=== PATIENT | female | born 1985 | race African-American/Black ===

== ENCOUNTER 2020-12-01 13:14 | Emergency (ER) | payer OTHER ==
[~2020-12-01] VITALS: Ht 165.1 cm; Wt 85.5 kg
[2020-12-01] MEDS ORDERED: DEPO150I12 IM (13:42)
[2020-12-01 13:46] VITALS: BP 165/90
[2020-12-01] MEDS ORDERED: METOCLOPRAMIDE INJ 10MG/2ML VIAL (J2765 PER 1) IV ONE (14:00)
[2020-12-01] MEDS ORDERED: NS 1,000 ML IV ONE (14:00)
[2020-12-01] MEDS ORDERED: ACETAMINOPHEN 500 MG TAB PO ONE (14:00)
[2020-12-01 14:24] LABS: BASO # 0.1 10^3/uL (0.0-0.2); BASO % 0.8 % (0.0-1.0); EOS % 0.2 % (0.0-3.0); HEMOGLOBIN 12.8 g/dl (12.0-15.5); LYMPH # 2.2 10^3/uL (1.5-5.0); LYMPH % 35.8 % (24.0-44.0); MEAN CORPUSCULAR HEMOGLOBIN 22.7 pg (27.0-33.0); MEAN CORPUSCULAR HGB CONC 30.5 g/dl (32.0-36.5); MEAN CORPUSCULAR VOLUME 74.6 fl (80.0-96.0); MONO # 0.5 10^3/uL (0.0-0.8); MONO % 7.7 % (0.0-5.0); NEUTROPHILS # 3.5 10^3/uL (1.5-8.5); NEUTROPHILS % 55.2 % (36.0-66.0); PLATELET COUNT, AUTOMATED 405 10^3/uL (150-450); RED BLOOD COUNT 5.63 10^6/uL (4.00-5.40); WHITE BLOOD COUNT 6.3 10^3/uL (4.0-10.0)
[2020-12-01 14:56] LABS: RSV AMPLIFICATION NEGATIVE (NEGATIVE)
[2020-12-01 15:03] LABS: BILIRUBIN,DIRECT 0.1 MG/DL (0.0-0.2); BILIRUBIN,TOTAL 0.6 MG/DL (0.2-1.0); TOTAL PROTEIN 8.6 GM/DL (6.4-8.2)
[2020-12-01] MEDS ORDERED: ISOVUE-370 76% 100ML VIAL As Ordered ONE (15:09)
--- NOTE | 2020-12-01 15:33 | REP ---
INDICATION: RLQ pain, r/o appendicitis. COMPARISON: None TECHNIQUE: 100 cc of Isovue 370 intravenously FINDINGS: The lung bases are clear. The liver, gallbladder, spleen, pancreas, adrenal glands, and kidneys are within normal limits. The abdominal aorta and para aortic regions are within normal limits. The bowel loops and the mesenteries are within normal limits. The appendix is well visualized and is within normal limits. There is no free fluid or free air in the abdomen or pelvis. There is no evidence of a mass or adenopathy. The osseous structures are within normal limits. IMPRESSION: CT findings are within normal limits. <Electronically signed by Jay Sesay > 12/01/20 1103
[2020-12-01] MEDS ORDERED: ZOFR4TAB16 PO (16:27)
[2020-12-01] MEDS ORDERED: ONDANSETRON 4MG/2ML VIAL IV ONE (16:30)
--- NOTE | 2020-12-01 16:32 | REP ---
INDICATION: RLQ pain, r/o ovarian cyst vs torsion. COMPARISON: None TECHNIQUE: Transvesical and transvaginal FINDINGS: The uterus measures 8.4 x 2.8 x 4.5 cm. The parenchymal echo pattern is within normal limits. The endometrial echo complex measures 3 mm in its greatest thickness and is within normal limits. The right ovary measures 3.1 x 2.6 x 1.8 cm and is within normal limits with an RI of 0.59 Left ovary measures 2.2 x 1.7 x 1.5 cm and is within normal limits with an RI 0.63. There is no free fluid. IMPRESSION: Findings are within normal limits. <Electronically signed by Jay Sesay > 12/01/20 1435
== END 2020-12-01 17:29 | disposition home or self-care (01) ==
LOC: M ED 13:14 → EDBD 13:14 → M ED 17:29
DX: R11.2 Nausea with vomiting, unspecified (principal); R19.7 Diarrhea, unspecified; E11.9 Type 2 diabetes mellitus without complications; Z79.84 Long term (current) use of oral hypoglycemic drugs; Z79.3 Long term (current) use of hormonal contraceptives
CPT/HCPCS: 74177; 76830; 76856; 80047; 80076; 81001; 82150; 83690; 84702; 85025; 87631; 93976; 96361; 96374; 96375; 99284; J2405; J2765; Q9967

== ENCOUNTER 2021-06-17 21:37 | Emergency (ER) | payer OTHER ==
[~2021-06-17] VITALS: Ht 165.1 cm; Wt 69.0 kg
[2021-06-17 21:37] VITALS: BP 144/90
[~2021-06-17 21:37] MED LIST: DEPO150I12 IM; ZOFR4TAB16 PO
[2021-06-17] MEDS ORDERED: NOXI1TAB PO (21:51)
[2021-06-17] MEDS ORDERED: FERR325T3 PO (21:51)
[2021-06-17] MEDS ORDERED: HYDR-3363 PO (21:51)
[2021-06-17] MEDS ORDERED: METF-839 PO (21:51)
[2021-06-17] MEDS ORDERED: PROZ20CA11 PO (21:51)
[2021-06-17] MEDS ORDERED: ZONI25CA13 PO (21:51)
[2021-06-17] MEDS ORDERED: LIPI10TA PO (21:51)
== END 2021-06-18 00:21 | disposition left against medical advice (07) ==
LOC: M ED 06-18 00:10
DX: Z53.21 Procedure and treatment not carried out due to patient leaving prior to being seen by health care provider (principal)